=== PATIENT | female | born 1965 | race Hispanic/Latino ===

== ENCOUNTER 2017-12-27 12:40 | Emergency (ER) | payer SELFPAY ==
[2017-12-27] MEDS ORDERED: Acetaminophen 500 MG TAB ONE (13:04)
[2017-12-27 13:18] LABS: Bilirubin Negative (Negative); Blood, Urine Trace (Negative); Glucose, Urine (Dipstick) >=1000 mg/dL (Negative); Leukocyte Trace (Negative); Nitrite Positive (Negative); Protein, Urine (Dipstick) 30 mg/dL (Neg-Trace); Specific Gravity, Urine 1.015 (1.005-1.030)
[2017-12-27 13:19] LABS: Clarity Hazy (Clear)
[2017-12-27 13:30] LABS: Bacteria/HPF 3+ HPF (None Seen); RBC/HPF 0-3 HPF (0-3); Squamous Epithelial 0-3 HPF (0-3); WBC/HPF 0-3 HPF (0-3)
[2017-12-27] MEDS ORDERED: Lidocaine 1% 20 ML MDV ONE (13:37)
[2017-12-27] MEDS ORDERED: cefTRIAXone\\ROCEPHIN 1 GM VIAL ONE (13:37)
== END 2017-12-27 14:00 | disposition home or self-care (01) ==
LOC: MADERS 12:40
DX: B34.9 Viral infection, unspecified (principal); N39.0 Urinary tract infection, site not specified; I10 Essential (primary) hypertension; E11.9 Type 2 diabetes mellitus without complications; Z79.84 Long term (current) use of oral hypoglycemic drugs; Z79.899 Other long term (current) drug therapy
CPT/HCPCS: 81003; 81015; 87077; 87086; 87186; 96372; J0696; J2001

== ENCOUNTER 2021-05-17 19:18 | Outpatient (CLI) | payer SELFPAY ==
[2021-05-19 22:44] LABS: HPV High Risk Type 16 Negative (Negative); HPV High Risk Type 18 Negative (Negative)
[2021-05-19 22:53] LABS: HPV Other High Risk Types Negative (Negative)
== END 2021-05-17 19:19 | disposition home or self-care (01) ==
LOC: MADLABBHPM 19:18
PROVIDERS: ATTEND Family Medicine
DX: Z01.419 Encounter for gynecological examination (general) (routine) without abnormal findings (principal)
CPT/HCPCS: 87624; 88142; G0123